=== PATIENT | male | born 1985 | race Caucasian/White ===

== ENCOUNTER 2016-10-20 23:50 | Emergency (ER) | payer OTHER ==
[~2016-10-20] VITALS: Ht 167.6 cm; Wt 70.3 kg
--- NOTE | 2016-10-20 23:55 | ED AMS/SEIZURE/WEAK/DIZZY ---
History of Present Illness General Chief Complaint: ETOH/Drug Related Complaint Stated Complaint: BIBA ETOH Source: patient, EMS Exam Limitations: intoxication Vital Signs & Intake/Output Vital Signs & Intake/Output Vital Signs Date Time Temp Pulse Resp B/P Pulse O2 O2 Flow FiO2 Ox Delivery Rate 10/21 0610 97.3 80 18 116/70 98 Room Air 10/21 0332 97.1 79 18 110/72 97 Room Air 10/21 0016 98 Room Air 10/21 0003 96.3 80 16 111/71 98 Room Air ED Intake and Output 10/21 0000 10/20 1200 Intake Total Output Total Balance Patient 155 lb Weight . (ISSA STRATTON,SARAH Javier) Allergies Coded Allergies: NO KNOWN ALLERGIES (04/05/11) Triage Nurses Notes Reviewed? yes Onset: Gradual Duration: hour(s): Timing: recent history Injury Environment: street Severity: moderate Modifying Factors: Improves With: rest. Associated Symptoms: "I've been drinking." HPI: 31-year-old gentleman in prior good health presents after being found on the sidewalk. Per the medics, a passerby saw Mr. Grayson lying on the sidewalk. 911 was called. When the medics arrived, he was awake and alert but with slurred speech. The patient reports that he been drinking tonight. He denies falling. He states he he has no pain, headache, discomfort. He denies suicidality, homicidality, hallucinations, or injury. He states that he is otherwise well, and that he would like to, "sleep it off." He declines treatment opportunities. Past History Travel History Traveled to [place] past 21 day No Medical History Any Pertinent Medical History? see below for history Tetanus Vaccine: Surgical History Surgical History: none Psychosocial History Who do you live with Patient and family What is your primary language German Family History Hx Contributory? No Review of Systems Review of Systems Constitutional: Reports: no symptoms. EENTM: Reports: no symptoms. Respiratory: Reports: no symptoms. Cardiovascular: Reports: no symptoms. GI: Reports: no symptoms. Genitourinary: Reports: no symptoms. Musculoskeletal: Reports: no symptoms. Skin: Reports: no symptoms. Neurological/Psychological: Reports: no symptoms. Hematologic/Endocrine: Reports: no symptoms. Immunologic/Allergic: Reports: no symptoms. All Other Systems: Reviewed and Negative Physical Exam Physical Exam General Appearance: well developed/nourished, no apparent distress Head: atraumatic, normal appearance Eyes: Bilateral: normal appearance. Ears, Nose, Throat: normal pharynx, normal ENT inspection Neck: normal inspection, supple, full range of motion Respiratory: normal breath sounds, chest non-tender, no respiratory distress, quiet respiration, lungs clear Cardiovascular: regular rate/rhythm Gastrointestinal: normal bowel sounds, soft, non-tender, no organomegaly Back: normal inspection, normal range of motion Extremities: normal range of motion Neurologic/Psych: no motor/sensory deficits, awake, alert, oriented x 3 Skin: intact, normal color, warm/dry Core Measures ACS in differential dx? No CVA/TIA Diagnosis: No Severe Sepsis Present: No Septic Shock Present: No Progress Differential Diagnosis: alcohol intoxication Plan of Care: Orders Procedure Date/time Status Continuous Observation Monitor 10/20 2354 Active Laboratory Tests 10/21/16 0014: CBC w Diff Cancelled, WBC Cancelled, RBC Cancelled, Hgb Cancelled, Hct Cancelled , MCV Cancelled, MCH Cancelled, RDW Cancelled, Plt Count Cancelled, MPV Cancelled, PUBS MCHC Cancelled, Serum Alcohol Cancelled 10/20/16 9965: Methadone Screen Cancelled, Barbiturate Screen Cancelled, Ur Phencyclidine Scrn Cancelled, Amphetamines Screen Cancelled, U Benzodiazepines Scrn Cancelled, Urine Cocaine Screen Cancelled, Urine Cannabis Screen Cancelled Initial ED EKG: none Departure Departure Disposition: HOME OR SELF CARE Condition: Stable Clinical Impression Primary Impression: Alcohol intoxication Referrals: JUAN STRATTON,DELMAR Garcia (PCP/Family) Departure Forms: Customer Survey General Discharge Information Comments 10/21/16, 6:44am.... pt is awake, alert, ambulating well, calm. He would like to go home. He does not wish detox. I counseled moderation and close follow up.
[2016-10-21 06:10] VITALS: BP 116/70
== END 2016-10-21 06:48 ==
LOC: ERH 23:50
DX: F10.129 Alcohol abuse with intoxication, unspecified (principal)
CPT/HCPCS: 80307; G0480